=== PATIENT | male | born 1985 | race Caucasian/White ===

== ENCOUNTER 2020-09-22 21:54 | Emergency (ER) | payer SELFPAY ==
[~2020-09-22] VITALS: Ht 157.5 cm; Wt 68.0 kg
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
[2020-09-22] MEDS ORDERED: KETOROLAC 30 MG/ML VIAL. IVP ONE (22:15)
[2020-09-22] MEDS ORDERED: ONDANSETRON PF 4 MG/2 ML VIAL. IVP ONE (22:15)
[2020-09-22] MEDS ORDERED: FAMOTIDINE 20 MG/2 ML VIAL IVP ONE (22:15)
[2020-09-22] MEDS ORDERED: IV RINGERS SOLUTION,LACTATED 1,000 ML IV SCH (22:15)
[2020-09-22 22:45] LABS: BASO # 0.1 x10^3/uL (0.0-0.2); BASO % 1 % (0-3); EOS # 0.1 x10^3/uL (0.0-0.7); EOS % 1 % (0-3); HEMATOCRIT 45.3 % (39.0-53.0); HEMOGLOBIN 15.1 g/dL (13.0-17.5); LYMPH # 2.3 x10^3/uL (1.0-4.8); LYMPH % 33 % (24-48); MEAN CORPUSCULAR HEMOGLOBIN 30 pg (25-35); MEAN CORPUSCULAR HGB CONC 33 g/dL (31-37); MEAN CORPUSCULAR VOLUME 90 fL (79-100); MONO # 0.9 x10^3/uL (0.0-1.1); MONO % 13 % (0-9); NEUT # 3.8 x10^3uL (1.8-7.7); NEUT % 53 % (31-73); PLATELET COUNT 261 x10^3/uL (140-400); RED BLOOD COUNT 5.02 x10^6/uL (4.30-5.70); RED CELL DISTRIBUTION WIDTH 13.5 % (11.5-14.5); WHITE BLOOD COUNT 7.1 x10^3/uL (4.0-11.0)
[2020-09-22 22:56] LABS: CALCIUM 9.2 mg/dL (8.5-10.1); CREATININE 1.1 mg/dL (0.7-1.3); GFR 77.1; POTASSIUM 3.7 mmol/L (3.5-5.1)
[2020-09-22 23:03] LABS: ALBUMIN 4.3 g/dL (3.4-5.0); DIRECT BILIRUBIN 0.2 mg/dL (0.0-0.2); TOTAL BILIRUBIN 0.6 mg/dL (0.2-1.0); TOTAL PROTEIN 7.3 g/dL (6.4-8.2)
--- NOTE | 2020-09-22 23:10 | RAD ---
INDICATION: Reason: Lt. lower abd. pain / Spl. Instructions: / History: . COMPARISON: None. TECHNIQUE: Axial CT images obtained through the abdomen and pelvis without contrast. One or more of the following individualized dose reduction techniques were utilized for this examinat ion: 1. Automated exposure control; 2. Adjustment of the mA and/or kV according to patient size; 3 . Use of iterative reconstruction technique. FINDINGS: Fat-containing inguinal hernias. Scattered calcific atherosclerosis. No intrahepatic bile duct dilation. No peripancreatic fluid collection. Spleen is unremarkable. No left-sided hydronephrosis. Urinary bladder is somewhat distended at time of exam. No right-sided hydronephrosis. Surgical clips right lower quadrant. No dilated loops of bowel to suggest obstruction. There is some degenerative changes of spine. IMPRESSION: * No evidence of bowel obstruction or hydronephrosis. Electronically signed by: Paulo Garces MD (09/22/2020 11:08 PM) [id number]
--- NOTE | 2020-09-22 23:33 | RAD ---
INDICATION: Reason: severe Lt. lower abd. pain / Spl. Instructions: / History: COMPARISON: None. IMPRESSION: 4 views of chest and abdomen obtained. No focal airspace consolidation to suggest pneumonia. Cardiac silhouette is unremarkable. Air scattered throughout the large and small bowel in a nonspecific but n ot grossly obstructive pattern. There are some scattered calcifications visualized including within t he left hemipelvis as well as right side of the abdomen Electronically signed by: Paulo Garces MD (09/22/2020 11:30 PM) [id number]
[2020-09-22 23:35] LABS: BARBITURATES NEG (NEG); BENZODIAZEPINES NEG (NEG); CANNABINOIDS POS (NEG); COCAINE NEG (NEG); METHADONE NEG (NEG); OPIATES NEG (NEG); PHENCYCLIDINE NEG (NEG)
[2020-09-22 23:39] LABS: AMPHETAMINE/METHAMPHETAMINE POS (NEG)
[2020-09-23 01:39] LABS: BILIRUBIN,URINE NEG (NEG); CLARITY,URINE HAZY; COLOR,URINE YELLOW; GLUCOSE,URINE NEG (NEG)
[2020-09-23 01:40] LABS: AMORPHOUS SEDIMENT,UR PRESENT /HPF; BACTERIA,URINE 0 /HPF (0-FEW); NITRITE,URINE NEG (NEG); RBC,URINE 0 /HPF (0-2); WBC,URINE 0 /HPF (0-4)
[2020-09-23 03:20] VITALS: BP 137/78
[2020-09-23] MEDS ORDERED: MAGNESIUM HYDROXIDE 2,400 MG/30 ML ORAL.SUSP. PO ONE (03:30)
--- NOTE | 2020-09-23 05:12 | EKG ---
[facility] [address] [place] [id number] Test Date: 2020-09-23 Test Time: 02:46:17 Pat Name: SIGRID MOLINA Department: Room: Gender: M [employer]: : 1985 Requested By: TIFF BAILEY Order Number: [id number] Reading MD: Measurements Intervals [place] Rate: 59 P: IA: QRS: 67 QRSD: 90 T: 50 QT: 436 QTc: 436 Interpretive Statements ATRIAL FLUTTER ST & T ABNORMALITY, CONSIDER RECENT INFERIOR MYOCARDIAL OR PERICARDIAL DAMAGE ABNORMAL ECG RI6.02 No previous ECG available for comparison
== END 2020-09-23 03:20 | disposition home or self-care (01) ==
LOC: ER 21:54
DX: K59.00 Constipation, unspecified (principal); R10.12 Left upper quadrant pain; R10.32 Left lower quadrant pain; F15.10 Other stimulant abuse, uncomplicated; R74.8 Abnormal levels of other serum enzymes; R79.89 Other specified abnormal findings of blood chemistry; F12.10 Cannabis abuse, uncomplicated; F17.210 Nicotine dependence, cigarettes, uncomplicated; F41.9 Anxiety disorder, unspecified; F31.9 Bipolar disorder, unspecified; Z87.820 Personal history of traumatic brain injury
CPT/HCPCS: 36415; 74022; 74176; 80048; 80076; 80307; 81001; 82550; 83690; 84484; 85025; 85610; 85730; 93005; 96361; 96374; 96375; 99285; J1885; J2060; J2405; J3490; J7120